=== PATIENT | male | born 1995 | race Caucasian/White ===

== ENCOUNTER 2016-11-13 08:29 | Emergency (ER) | payer OTHER ==
[2016-11-13 08:36] VITALS: TEMP 98.6
--- NOTE | 2016-11-13 09:14 | EDPHY ---
H & P Time Seen by Provider: 11/13/16 09:01 HPI/ROS: This is a 21-year-old male presenting to the emergency department complaining diarrhea since Sunday. Patient reports he got back from [facility] on , Sunday afternoon as when diarrhea started states he felt feverish intermittent sore throat, headache with abdominal cramping. Diarrhea increased on Sunday and this morning with some intermittent nausea no vomiting, able to tolerate p.o. intake but with decreased appetite. Patient states he was seen [facility] yesterday with a negative rapid strep a negative flu. His biggest concern was dehydration due to the diarrhea. REVIEW OF SYSTEMS: Constitutional: Intermittent fever, decreased appetite Eyes: No blurred vision ENT: Intermittent sore throat Respiratory: No cough Cardiac: No chest pain Gastrointestinal: Abdominal cramping with diarrhea and nausea Musculoskeletal: No injuries Skin: No rash Neurological: Intermittent headache Smoking Status: Never smoked Physical Exam: CONSTITUTIONAL: patient appeared well nourished, non-ill appearing and normally developed. No acute distress. Vital signs as documented. HEENT: Normocephalic atraumatic. Oropharynx positive erythema with some exudate no drooling NECK: Supple, FROM without pain RESP: Non-labored resp effort, airway patent, CTAB CARDIAC: RRR w/o murmur, luz elena. Normal S1/S2 GI: Abd soft NTTP NEURO: AAOx3 EXTREMITIES: FROM without pain or difficulty. Positive cms intact SKIN: Warm and dry no rash LYMPH: Cervical lymphadenopathy NTTP PSYCH: Normal affect, calm, no distress, acting age appropriate Constitutional: Initial Vital Signs Temperature (C) 37 C 11/13/16 08:32 Heart Rate 88 11/13/16 08:32 Respiratory Rate 18 11/13/16 08:32 Blood Pressure 113/63 11/13/16 08:32 O2 Sat (%) 99 11/13/16 08:32 O2 Delivery Mode Room Air Allergies/Adverse Reactions: No Known Allergies Allergy (Unverified 11/13/16 08:31) Home Medications: Medication Instructions Recorded Clindamycin Phosphate 11/13/16 TRETINOIN 11/13/16 Medical Decision Making ED Course/Re-evaluation: Discussed plan of care: IV fluids for hydration, CBC BMP. Discussed all lab results which were unremarkable. patient states doing a lot better ready to go home. discharge home---> stable, discussed discharge instructions with patient Differential Diagnosis: Differential diagnosis considered but not limited to influenza, gastroenteritis - Data Points Laboratory Results: Laboratory Results 11/13/16 08:49 11/13/16 08:49 11/13/16 11/13/16 08:49 08:49 WBC 5.20 10^3/uL 10^3/uL (3.80-9.50) RBC 5.07 10^6/uL 10^6/uL (4.40-6.38) Hgb 15.5 g/dL g/dL (13.7-17.5) Hct 45.0 % % (40.0-51.0) MCV 88.8 fL fL (81.5-99.8) MCH 30.6 pg pg (27.9-34.1) MCHC 34.4 g/dL g/dL (32.4-36.7) RDW 12.1 % % (11.5-15.2) Plt Count 168 10^3/uL 10^3/uL (150-400) MPV 10.5 fL fL (8.7-11.7) Neut % (Auto) 65.7 % % (39.3-74.2) Lymph % (Auto) 20.2 % % (15.0-45.0) Burnet % (Auto) 13.5 % H % (4.5-13.0) Eos % (Auto) 0.0 % L % (0.6-7.6) Baso % (Auto) 0.2 % L % (0.3-1.7) Nucleat RBC Rel Count 0.0 % % (0.0-0.2) Absolute Neuts (auto) 3.42 10^3/uL 10^3/uL (1.70-6.50) Absolute Lymphs (auto) 1.05 10^3/uL 10^3/uL (1.00-3.00) Absolute Monos (auto) 0.70 10^3/uL 10^3/uL (0.30-0.80) Absolute Eos (auto) 0.00 10^3/uL L 10^3/uL (0.03-0.40) Absolute Basos (auto) 0.01 10^3/uL L 10^3/uL (0.02-0.10) Absolute Nucleated RBC 0.00 10^3/uL 10^3/uL (0-0.01) Immature Gran % 0.4 % % (0.0-1.1) Immature Gran # 0.02 10^3/uL 10^3/uL (0.00-0.10) Sodium 137 mEq/L mEq/L (134-144) Potassium 3.8 mEq/L mEq/L (3.5-5.2) Chloride 102 mEq/L mEq/L (97-110) Carbon Dioxide 22 mEq/l mEq/l (22-31) Anion Gap 13 mEq/L mEq/L (8-16) BUN 12 mg/dL mg/dL (7-23) Creatinine 1.0 mg/dL mg/dL (0.7-1.3) Estimated GFR > 60 Glucose 85 mg/dL mg/dL (70-100) Calcium 9.3 mg/dL mg/dL (8.5-10.4) Departure - Departure Disposition: Home, Routine, Self-Care Clinical Impression: Diarrhea in adult patient Condition: Good Instructions: Loperamide (By mouth), Traveler's Diarrhea (ED), Acute Diarrhea ( ED) Additional Instructions: 1. You can take [id number] Imodium as needed for diarrhea 2. Recommend clear fluids for for the next 12 hours such as: Broth, Jell-O, popsicles increased fluid intake. Then you can advance diet as tolerated bland diet his toast, crackers, scrambled eggs plain. 3. I would recommend no Gatorade as this can increase diarrhea, if you feel you need to drink Gatorade diluted 50% with water 4. Follow up with primary care as needed. If any worsening symptoms bloody diarrhea, unable to tolerate any p.o. intake return to the emergency department Referrals: LUIS CARLOS FUCHS [Other] - As per Instructions
[2016-11-13 09:18] LABS: % IMMATURE GRANULYOCYTES 0.4 % (0.0-1.1); ABSOLUTE IMMATURE GRANULOCYTES 0.02 10^3/uL (0.00-0.10); ADD DIFF? NO; ADD MORPH? NO; ADD SCAN? NO; ATYPICAL LYMPHOCYTE FLAG 0 (0-99); FRAGMENT RBC FLAG 0 (0-99); HEMOGLOBIN 15.5 g/dL (13.7-17.5); LEFT SHIFT FLG 10 (0-99); LIPEMIA HEMOLYSIS FLAG 90 (0-99); MEAN CELL HEMOGLOBIN 30.6 pg (27.9-34.1); MEAN CELL HEMOGLOBIN CONCENTR. 34.4 g/dL (32.4-36.7); MEAN CELL VOLUME 88.8 fL (81.5-99.8); MEAN PLATELET VOLUME 10.5 fL (8.7-11.7); PLATELET CLUMPS FLAG 0 (0-99); PLATELET COUNT 168 10^3/uL (150-400); RED BLOOD CELL COUNT 5.07 10^6/uL (4.40-6.38); RED CELL DISTRIBUTION WIDTH 12.1 % (11.5-15.2)
[2016-11-13 09:23] LABS: ANION GAP 13 mEq/L (8-16); CALCIUM 9.3 mg/dL (8.5-10.4); CARBON DIOXIDE 22 mEq/l (22-31); CHLORIDE 102 mEq/L (97-110); GLOMERULAR FILTRATION RATE > 60; GLUCOSE 85 mg/dL (70-100); POTASSIUM 3.8 mEq/L (3.5-5.2); SODIUM 137 mEq/L (134-144)
[2016-11-13 10:17] VITALS: BP 113/45; PULSE 66; RESP 16; O2SAT 98
== END 2016-11-13 10:16 | disposition home or self-care (01) ==
DX: R19.7 Diarrhea, unspecified (principal)

== ENCOUNTER 2017-10-07 01:37 | Emergency (ER) | payer OTHER ==
[2017-10-07 01:43] VITALS: RESP 18
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
[2017-10-07 02:52] VITALS: BP 122/66; PULSE 90; TEMP 97.9; O2SAT 94
[2017-10-07] MEDS ORDERED: FLUORESCEIN SODIUM 1 MG STRIP OP ONE (03:07)
[2017-10-07] MEDS ORDERED: PROPARACAINE 0.5% 15 ML OPHT DROP OP ONE (03:07)
== END 2017-10-07 02:51 | disposition home or self-care (01) ==
PROC: 0CQ0XZZ Repair Upper Lip, External Approach (ICD-10-PCS; principal; 2017-10-07)
DX: S01.511A Laceration without foreign body of lip, initial encounter (principal); Y04.2XXA Assault by strike against or bumped into by another person, initial encounter